=== PATIENT | female | born 1955 | race African-American/Black ===

== ENCOUNTER 2018-06-02 09:51 | Emergency (ER) | payer MEDICARE, MEDICAID ==
[~2018-06-02 09:51] MED LIST: ADVAIR; AMLODIPINE PO; BENADRYL; BENAZEPRIL PO; CALCIUM; FLUTICASONE; FUROSEMIDE; OMEP20CA10 PO; OYST CAL; TRAMADOL
== END 2018-06-02 10:31 | disposition left against medical advice (07) ==
LOC: ER 10:03
DX: M79.606 Pain in leg, unspecified (principal); Z53.21 Procedure and treatment not carried out due to patient leaving prior to being seen by health care provider

== ENCOUNTER 2021-11-20 08:28 | Emergency (ER) | payer MEDICARE, MEDICAID ==
[~2021-11-20] VITALS: Ht 167.6 cm; Wt 120.0 kg
[~2021-11-20 08:28] MED LIST changes: -OMEP20CA10 PO; +OMEP20CA14 PO
[2021-11-20 08:40] VITALS: BP 177/93
[2021-11-20] MEDS ORDERED: BO1 TP (11:09)
== END 2021-11-20 11:16 | disposition home or self-care (01) ==
LOC: ER 09:48
DX: R68.89 Other general symptoms and signs (principal); I11.0 Hypertensive heart disease with heart failure; I50.9 Heart failure, unspecified; K21.9 Gastro-esophageal reflux disease without esophagitis; J45.909 Unspecified asthma, uncomplicated
CPT/HCPCS: 99281

== ENCOUNTER 2024-01-28 18:43 | Emergency (ER) | payer MEDICARE, MEDICAID ==
[~2024-01-28] VITALS: Ht 162.6 cm; Wt 113.0 kg
[~2024-01-28 18:43] MED LIST changes: +BO1 TP
[2024-01-28 18:56] VITALS: TEMP 98; O2SAT 98
[2024-01-28] MEDS ORDERED: IBUPROFEN 600MG TABLET PO STA (19:24)
[2024-01-28] MEDS ORDERED: IBUP-2029 MT (20:49)
[2024-01-28] MEDS: IBUPROFEN 600MG TABLET PO NR (21:07)
[2024-01-28 21:17] VITALS: BP 156/79; PULSE 82; RESP 19; O2SAT 97
== END 2024-01-28 21:18 | disposition home or self-care (01) ==
LOC: ER 18:43
DX: S20.213A Contusion of bilateral front wall of thorax, initial encounter (principal); M25.521 Pain in right elbow; J45.909 Unspecified asthma, uncomplicated; I10 Essential (primary) hypertension; Z79.899 Other long term (current) drug therapy; Z88.0 Allergy status to penicillin; Z79.51 Long term (current) use of inhaled steroids; Z88.5 Allergy status to narcotic agent; Z88.8 Allergy status to other drugs, medicaments and biological substances; Z91.041 Radiographic dye allergy status; W22.8XXA Striking against or struck by other objects, initial encounter; Y93.89 Activity, other specified; Y92.89 Other specified places as the place of occurrence of the external cause; Y99.8 Other external cause status
CPT/HCPCS: 71045; 73070; 99284

== ENCOUNTER 2024-05-09 17:28 | Emergency (ER) | payer MEDICARE, MEDICAID ==
[~2024-05-09] VITALS: Ht 160 cm; Wt 128.0 kg
[~2024-05-09 17:28] MED LIST changes: +IBUP-2029 MT
[2024-05-09 17:56] VITALS: O2SAT 97
[2024-05-09 20:16] VITALS: BP 150/86; PULSE 90; RESP 18; TEMP 36.8; O2SAT 98
== END 2024-05-09 20:17 | disposition home or self-care (01) ==
LOC: ER 17:40
DX: M79.601 Pain in right arm (principal); J45.909 Unspecified asthma, uncomplicated; I10 Essential (primary) hypertension; Z79.899 Other long term (current) drug therapy; Z88.0 Allergy status to penicillin; Z88.5 Allergy status to narcotic agent; Z88.8 Allergy status to other drugs, medicaments and biological substances; Z91.041 Radiographic dye allergy status
CPT/HCPCS: 93971; 99284